=== PATIENT | female | born 1965 ===

== ENCOUNTER 2018-01-09 02:45 | Emergency (ER) | payer BC ==
[~2018-01-09] VITALS: Ht 160 cm; Wt 72.6 kg
[~2018-01-09 02:45] MED LIST: CIPRO500 MG PO; LEVSIN/SL0.125 MG PO; PROTONIX40 MG PO
== END 2018-01-09 13:49 | disposition home or self-care (01) ==
LOC: ER 02:45
DX: K29.60 Other gastritis without bleeding (principal)